=== PATIENT | female | born 1950 | race Caucasian/White ===

== ENCOUNTER 2025-05-24 12:44 | Day surgery (SDC) | payer MEDICARE, OTHER ==
[2025-05-24] MEDS ORDERED: Sodium Chloride 0.9(Preservative Free) 10 ML IJ ONE (12:45)
[2025-05-24] MEDS ORDERED: propofoL IV ONE (14:57)
[2025-05-24] MEDS ORDERED: DILAUDID 0.5 MG/0.5 ML SYRINGE ONE (15:31)
[2025-05-24] MEDS ORDERED: Lactated Ringers 1,000 ML IV ONE (16:09)
--- NOTE | 2025-05-24 16:38 | XRAY ---
Indication: Right L2-L3 and L4-L5 transforaminal FLACO. Intraoperative fluoroscopy provided for 48 seconds. 4 digital spot image submitted for interpretation demonstrates posterior needle tips projecting over expected right L2 and L4 nerve roots. Small amount of contrast injected for needle tip placement. Correlate with intraoperative findings/report.
--- NOTE | 2025-05-24 17:00 | XRAY ---
48 seconds of fluoroscopy was used in surgery for a right L2-L3 and L4-L5 transforaminal FLACO.
== END 2025-05-24 15:55 | disposition home or self-care (01) ==
LOC: SDC-PAIN 12:44
PROVIDERS: ATTEND Psychiatry & Neurology Pain Medicine
DX: M54.16 Radiculopathy, lumbar region (principal)